=== PATIENT | female | born 1945 | race Caucasian/White ===

== ENCOUNTER 2019-08-01 14:16 | Emergency (ER) | payer OTHER ==
[~2019-08-01] VITALS: Ht 162.6 cm; Wt 58.5 kg
[~2019-08-01 14:16] MED LIST: ACCOLATE20 MG PO; ADVAIR HFA 230M12 GM INH; APAP500 PO; CALCIUM 500 +1 EAC5 PO; CENTRUM SILVER1 EAC4 PO; EVISTA PO; FISH OIL 1,001000 M2 PO; FLEXERIL PO; HYDROCHLOROTHIA25 M2 PO; PREDNISONE 20 M20 M1 PO; PRILOSEC 20 MG20 MG PO; VENTOLIN HFA 1818 GM PO
[2019-08-01 16:21] VITALS: BP 168/88
== END 2019-08-01 16:20 | disposition home or self-care (01) ==
LOC: ER 14:16
DX: S61.412A Laceration without foreign body of left hand, initial encounter (principal); K21.9 Gastro-esophageal reflux disease without esophagitis; E78.00 Pure hypercholesterolemia, unspecified; J45.909 Unspecified asthma, uncomplicated; Z79.899 Other long term (current) drug therapy; Z88.6 Allergy status to analgesic agent; Z88.0 Allergy status to penicillin; Z88.1 Allergy status to other antibiotic agents; W45.8XXA Other foreign body or object entering through skin, initial encounter; Y93.89 Activity, other specified; Y92.89 Other specified places as the place of occurrence of the external cause; Y99.8 Other external cause status